=== PATIENT | female | born 1940 | race Caucasian/White ===

== ENCOUNTER → 2017-10-05 10:32 | Outpatient (CLI) | payer MEDICARE, OTHER, SELFPAY ==
--- NOTE | 2017-10-05 10:35 | RAD_ITS ---
STUDY: X-RAY - LUMBOSACRAL SPINE REASON FOR EXAM: Female, 77 years old. Low back pain. TECHNIQUE: 7 view(s) of the lumbosacral spine including lateral flexion and extension views were obtained. COMPARISON: None FINDINGS: Normal lumbar lordosis. There is no substantial scoliosis. There is normal alignment of the vertebrae. There is limited flexion with no abnormal motion. Normal vertebral bodies and endplates. Normal disc space heights. There is diffuse facet sclerosis. Normal bilateral sacral ala, sacroiliac joints, and visualized sacrum. Normal visualized soft tissue structures. RAD/L/S Spine Comp/w Bending Views IMPRESSION: Mild diffuse lumbar spondylosis. Limited flexion with no abnormal motion. Electronically Signed: Eder Gibbons MD at 14:09 EDT , Service support ,
== END ==
PROVIDERS: Family Provider Internal Medicine; PCP Internal Medicine; Visit Provider Orthopaedic Surgery
DX: M54.5 Low back pain (principal)
CPT/HCPCS: 72114

== ENCOUNTER 2017-11-02 12:00 | Outpatient (RCR) | payer MEDICARE, OTHER, SELFPAY ==
--- NOTE | 2017-10-18 09:46 | HP.PTEVAL ---
Patient's Visit Information MILE VAZQUEZ is a 77 year old F referred to Physical Therapy by Kimberly Chaidez DO with a diagnosis of imbalance, lumbar radiculopathy, hamstring weakness and unsteady gait. Date of Evaluation: 10/10/17 Physical Therapist: Albaro De Dios - Visit Plan Frequency: 2x /Week Duration: 4 Weeks Plan: Start with flexion based exercises, neutral spine core strengthening, modalities to reduce L sided low back pain. Add in neurocom assessment and add findings to plan of care. - Subjective Subjective: Pt. is here today for her initial evaluation with diagnosis of imbalance, lumbar radiculopathy, hamstring weakness and unsteady gait. Pt. reports having some back pain, but mostly in L hip. She does report some radiating symptoms down both legs at times, but not often. No mechanism of injury noted. Pt. did see a chiropractor which did help. Pt. denies N/T in either LE. Increases pain: prolonged standing or walking, static standing is worse. Decreases pain: sitting, bending fwrd. Xray-mild spondylosis. Pt. reports being active, but has noticed increased difficulty with walking on uneven surfaces and reports that her legs give out on her at times. Pt. reports no changes in B/B, no saddle region pain or numbness. Pt. has has some relief with heat, but today she reports her pain is not tood bad. Pt. was referred to neurology for EMG study, but neurologist's office reported to her that they do not perform that test. Pt. reports not being convinced that her pain is coming from her back. Pt. denies difficulty with sleeping. Pt. is hopeful to increase balance and reduce L hip pain in order to get back to all recreational activities without issues. - Pain L hip Pain Intensity (Out of 10): 3 Pain Intensity Range: 0, 6 - Objective POSTURE: Pt. has slight increased thoracic kyphosis with FH posture. Pt has equal iliac crest heights in stance. Pt. has normal JOSELYN without LOB. PALPATION: Pt. has slight increased tenderness along bilateral paralspinals of lumbar spine, L PSIS, L piriformis muscle belly. Pt. has no R sided leg pain with palpation. Pt. has no trochanteric symptoms. NEUROLOGICAL: pt. has normal sensation to light and sharp touch throughout bilateral LES. Pt. has 2+ achilles and patellar DTR bilaterally, except 1+ on L achilles. Pt. is able to rise on heels and toes without visble weakness, required balance aide for stability. ROM: LUMBAR SPINE: flexion- nil loss NE, ext mil loss NE, SB nil loss bilat NE, rotation nil loss NE bilat. Pt. has normal hip ROM bilaterally without increase in symptoms. Normal HS length noted. MMT: RLE- ankle- 4+/5 throughout; knee- ext 5/5, flexion 4/5; hip- flexion 4+/5, abd 4/5, ext 4+/5. LLE- ankle 4+/5 throughout; knee- ext 5/5, flexion 4/5; hip- flexion 4+/5, abd 4/5, ext 4+/5. Core strength- poor. Pt. required increased VCing to properly complete MMT. GAIT: Pt. ambulated without AD with decent stability, increased lateral sway bilaterally, increased JOSELYN. Pt. had no LOB with gait this date. Pt. does have methodical pattern with gait. Pt. reports no increase in back pain until ~250ft. when this increased her L hip pain. No radiating symptoms noted. - Special Tests L/S Slump test left side: Negative L/S Slump test right side: Negative L/S Left Straight Leg Raise: Negative L/S Right Straight Leg Raise: Negative Lumbar Standing: Flexion - Mechanical Response: No effect Lumbar Standing: Flexion - Symptoms During Testing: No effect Lumbar Standing: Flexion - Symptoms After Testing: No effect Lumbar Standing: Extension - Mechanical Response: No effect Lumbar Standing: Extension - Symptoms During Testing: No effect Lumbar Standing: Extension - Symptoms After Testing: No effect Lumbar Standing: Right Side Glides - Mechanical Response: No effect Lumbar Standing: Right Side [place] - Symptoms During Testing: No effect Lumbar Standing: Right Side [place] - Symptoms After Testing: No effect Lumbar Standing: Left Side [place] - Mechanical Response: No effect Lumbar Standing: Left Side [place] - Symptoms During Testing: No effect Lumbar Standing: Left Side [place] - Symptoms After Testing: No effect L Hip Scour: Negative L Hip Quadrant - Intraarticular Pathology: Negative L Hip FADDIR - Labrum: Negative L Hip Trevor - IT Band: Negative - Balance Scores Functional Gait Assessment Score: 18 % Disability: 40.0000 - Goals Goal 1:: Pt. to be I with HEP. Goal Time Frame: 2-4 Weeks Goal 2:: Pt. to have neurocom balance assessment and add findings to plan of care. Goal Time Frame: 2 Weeks Goal 3:: Pt. to have increased core and BLE strength increased by 1/2 grade of all effected musculature reducing stress on lumbar spine and reducing risks for future falls. Goal Time Frame: 4-6 Weeks Goal 4:: Pt. to have increased FGA to 23/30 indicating reduced risk for future falls. Goal Time Frame: 4-6 Weeks Goal 5:: Pt. to have decreased L sided low back pain to 0-2/10 with all functional mobility increasing quality of life. Goal Time Frame: 4-6 Weeks - Rehabilitation Potential Physical Therapy Diagnosis: Pt. has signs and symptoms consistent with L sided low back pain. She does have some bilateral HS weakness and imbalance with gait. Her symptoms were not exaccerbated with lumbar mobility and had some increased pain with prolonged standing and walking. Her symptoms were reduced this date compared to seeing ortho. Pt. does have marked imbalance and does report occassional legs giving out. I will treat her with core stability, HS strengthening, postural awareness, conduct a balance assessment on the neurocom and use modalities to reduce back pain in order to get back to prior levels of function and stability. Rehabilitation Potential: Good - Anticipated Interventions Patient/Client Instruction: Educate patient on: Condition, Plan of Care, Benefits of Fitness Program For the Purpose of:: To improve health and function, To foster healthy habits, To improve decision making, To facilitate caregiver knowledge, To improve self management, To prevent re-injury, To improve ability to perform tasks related to life management, To improve tolerance to ADL's Therapeutic Exercise to Include: Strength training, Power training, Endurance training, Balance training, Coordination, Body mechanics, Postural training, Gait and locomotor training, via Neurocom Balance Mas, Passive ROM, Active ROM, Dynamic Lumbar Stabilization For the Purpose of:: To decrease pain, To increase ROM, To improve nutrient delivery to tissue, To increase oxygenation perfusion, To improve muscle performance and motor function, To improve ability to perform ADL's, To improve gait and locomotor functions, To improve health of tissue, To decrease soft tissue restriction, To increase flexibility/ROM, To improve endurance, To improve balance, To improve safety with gait IF ES: Yes Thermo therapy (hot pack): Yes Ultrasound (thermal/non thermal): Yes For the Purpose of:: To decrease pain, To decrease swelling/inflammation, To increase ROM Thank you for the opportunity to evaluate your patient. For Medicare and Medicare HMO plans, please review the plan of care and approve it. It will need to be FAXED BACK to us at [phone] for Medicare purposes. Please let me know if there are questions or concerns regarding this plan of care. Physician Signature: Date:
--- NOTE | 2017-10-19 12:19 | HP.PTCOM_ITS ---
PT Communication Note 10/19/[address] Kimberly Chaidez, DO , Thank you for the referral of Aminata to [facility] for balance assessment. I have enclosed a copy of her results for your review. In summation, she scored rather well. Minor deficits were present in forward excursion on the Limits of Stability Test. Also minor deficitis on the Sensory Organization Test in vestibular score. Most notably, as she stood in place, her left leg pain worsened. I plan to add some balance exercises that deepak ddress these deficits to her current plan of care. Please contact me if you have questions. Sincerely, Butch Oliva DPT, [place] Contact Information
--- NOTE | 2018-03-13 11:15 | HP.PT.NRP ---
HP - Discharge Summary (1) - Patient Information MILE VAZQUEZ was seen in my office for initial evaluation on 10/10/17. The following Plan of Care was established for this patient: Initial Frequency: 2x /Week Initial Duration: 4 Weeks - Anticipated Interventions Patient/Client Instruction: Educate patient on: Condition, Plan of Care, Benefits of Fitness Program For the Purpose of:: To improve health and function, To foster healthy habits, To improve decision making, To facilitate caregiver knowledge, To improve self management, To prevent re-injury, To improve ability to perform tasks related to life management, To improve tolerance to ADL's Therapeutic Exercise to Include: Strength training, Power training, Endurance training, Balance training, Coordination, Body mechanics, Postural training, Gait and locomotor training, via Neurocom Balance Mas, Passive ROM, Active ROM, Dynamic Lumbar Stabilization For the Purpose of:: To decrease pain, To increase ROM, To improve nutrient delivery to tissue, To increase oxygenation perfusion, To improve muscle performance and motor function, To improve ability to perform ADL's, To improve gait and locomotor functions, To improve health of tissue, To decrease soft tissue restriction, To increase flexibility/ROM, To improve endurance, To improve balance, To improve safety with gait IF ES: Yes Thermo therapy (hot pack): Yes Ultrasound (thermal/non thermal): Yes For the Purpose of:: To decrease pain, To decrease swelling/inflammation, To increase ROM This patient was last seen in our office 11/02/17. Pertinent comments regarding their Physical therapy will appear below: Pt. was seen for her balance exam and low back pain. Pt was treated with extension progression and given balance activities to work on at home. Pt. was to trial on own and follow up with PT if needed. Pt. has not been seen for ~4 months and will be DC from PT at this point in time. At this point I will be discontinuing this patient from physical therapy. I would be happy to see this patient again in the future if found appropriate by the physician. Thank you! Albaro De Dios
== END 2017-11-02 19:00 | disposition home or self-care (01) ==
LOC: PT 12:00
PROVIDERS: PCP Student in an Organized Health Care Education/Training Program; Visit Provider Orthopaedic Surgery
DX: M54.16 Radiculopathy, lumbar region (principal); M62.81 Muscle weakness (generalized); R26.81 Unsteadiness on feet
CPT/HCPCS: 97110; 97163; 97750

== ENCOUNTER → 2018-05-10 11:20 | Outpatient (CLI) | payer MEDICARE, OTHER, SELFPAY ==
[2018-05-10 13:20] LABS: Vitamin B12 437 pg/mL (211-911); Vitamin D,25 Hydroxy 40.2 ng/mL (29.95-100.01)
[2018-05-10 13:28] LABS: CPK Total, Creatine Kinase 74 U/L (26-192); Rheumatoid Factor < 10.0 IU/mL (<15)
[2018-05-13 08:57] LABS: ANTINUCLEAR ANTIBODIES DIRECT Negative (Negative)
[2018-05-21 15:03] LABS: ACHR AB Modulating <12 % (0-20); ACHR Recep AB, Blocking 19 % (0-25); Acetylcholine Receptor Binding < 0.03 nmol/L (0.00-0.24)
== END ==
PROVIDERS: Family Provider Student in an Organized Health Care Education/Training Program; PCP Student in an Organized Health Care Education/Training Program; Referring Provider Psychiatry & Neurology Neurology; Visit Provider Psychiatry & Neurology Neurology
DX: R20.0 Anesthesia of skin (principal); R53.1 Weakness; E56.9 Vitamin deficiency, unspecified
CPT/HCPCS: 36415; 82306; 82550; 82607; 83519; 84238; 84443; 86038; 86431

== ENCOUNTER → 2018-05-18 09:18 | Outpatient (CLI) | payer MEDICARE, OTHER, SELFPAY ==
--- NOTE | 2018-05-18 09:27 | MRI_ITS ---
STUDY: MRI LUMBAR SPINE WITHOUT CONTRAST REASON FOR EXAM: Female, 78 years old. Left leg weakness, LEFT SIDE AND HIP PAIN X 1 YEAR. TECHNIQUE: Standardized fat and water weighted pulse sequences were obtained in the sagittal and axial planes. COMPARISON: X-ray dated October 05, 2017 FINDINGS: T12-L1: There is minimal disc space narrowing and endplate spondylosis. There is no significant disc herniation, central canal or foraminal stenosis. Normal lumbar lordosis. There is no substantial scoliosis. Normal conus medullaris that terminates at the L1 L1-2: Normal endplates. Normal disc height, hydration and morphology. Normal bilateral facet joints. Normal central canal and bilateral lateral recesses. Normal bilateral intervertebral neural foramina. L2-3: There is minimal disc space narrowing and endplate spondylosis. There is no significant disc herniation, central canal or foraminal stenosis. L3-4: There is minimal disc space narrowing and endplate spondylosis. There is no significant disc herniation, central canal or foraminal stenosis. L4-5: There is minimal disc space narrowing and endplates spondylosis. There is a mild disc bulge and facet arthropathy without significant central canal or foraminal stenosis. L5-S1: There is minimal disc space narrowing and endplate spondylosis. There is no significant disc herniation, central canal or foraminal stenosis. There is mild facet arthropathy Normal visualized sacral ala. Normal visualized paraspinous soft tissue structures. MRI/Spine Lumbar (Routine) IMPRESSION: Mild degenerative changes. Electronically Signed: Mirza Watson MD at 9:04 EST Tel , Service support ,
--- OUTSIDE RECORDS SUMMARY | 2018-07-03 22:35 | XMS RPT_ITS ---
:1940 Author Organization OHIP Care Team Providers Name Role Phone Kimberly Chaidez Attending Unavailable Dichoso, Major Referring Unavailable Dichoso, Major Primary Care Unavailable Kimberly Chaidez Attending Unavailable Dichoso, Major Primary Care Unavailable Kimberly Chaidez Attending Unavailable Kimberly Chaidez Referring Unavailable DOCTOR, OUT OF TOWN Primary Care Unavailable Kimberly Chaidez Attending Unavailable Don, Simranjot Referring Unavailable DOCTOR, OUT OF TOWN Primary Care Unavailable Beba, Mitesh S. Attending Unavailable Beba, Mitesh S. Referring Unavailable Don, Simranjot Primary Care Unavailable Beba, Mitesh S. Attending Unavailable Beba, Mitesh S. Referring Unavailable Don, Simranjot Primary Care Unavailable DON, SIMRANJOT Attending Unavailable DON, SIMRANJOT Referring Unavailable PROBLEMS PROBLEMS DATE TYPE CONDITION / CODE ATTENDING STATUS SOURCE 06/04/2018 Unknown R20.0 - Beba, Active [facility] skin / Hospital R20.0(ICD-10) Repository 04/03/2018 Active Hyperglycemia, NA Active [facility] unspecified / Other [place] R73.9(ICD-10) Repository 04/03/2018 Active Pain in left hip DON, Active [facility] / M25.552(ICD-10) [facility] Other [place] Repository 04/03/2018 Active Pain in left leg DON, Active [facility] / M79.605(ICD-10) [facility] Repository 03/15/2018 Unknown M54.16 - Chicorelli, Active [place] Radiculopathy, [facility] lumbar region / Hospital M54.16(ICD-10) Repository 10/05/2017 Unknown M54.5 - Low back Chicorelli, Active [place] pain / [facility] M54.5(ICD-10) Hospital Repository PROCEDURES PROCEDURES No Procedure Records FoundRESULTS RESULTS SPINE LUMBAR Observed: 05/18/2018 Status: F Source: [place] (ROUTINE) 9:27 AM [facility] REPOSITORY [facility] Imaging Services [address] [place] [address] Spine Lumbar (Routine) MR#: [id number] Acct: [id number] Name: MILE VAZQUEZ Rep #: [id number] : 1940 F 78 From: Mirza Watson PCP: Papito Ochoa MD Status: REG CLI Study: Spine Lumbar (Routine) Date of Exam: 05/18/18 Exam# [id number] Ordering Dr: Mitesh Yoder MD STUDY: MRI LUMBAR SPINE WITHOUT CONTRAST REASON FOR EXAM: Female, 78 years old. Left leg weakness, LEFT SIDE AND HIP PAIN X 1 YEAR. TECHNIQUE: Standardized fat and water weighted pulse sequences were obtained in the sagittal and axial planes. COMPARISON: X-ray dated October 05, 2017 FINDINGS: T12-L1: There is minimal disc space narrowing and endplate spondylosis. There is no significant disc herniation, central canal or foraminal stenosis. Normal lumbar lordosis. There is no substantial scoliosis. Normal conus medullaris that terminates at the L1 L1-2: Normal endplates. Normal disc height, hydration and morphology. Normal bilateral facet joints. Normal central canal and bilateral lateral recesses. Normal bilateral intervertebral neural foramina. L2-3: There is minimal disc space narrowing and endplate spondylosis. There is no significant disc herniation, central canal or foraminal stenosis. L3-4: There is minimal disc space narrowing and endplate spondylosis. There is no significant disc herniation, central canal or foraminal stenosis. L4-5: There is minimal disc space narrowing and endplates spondylosis. There is a mild disc bulge and facet arthropathy without significant central canal or foraminal stenosis. L5-S1: There is minimal disc space narrowing and endplate spondylosis. There is no significant disc herniation, central canal or foraminal stenosis. There is mild facet arthropathy Normal visualized sacral ala. Normal visualized paraspinous soft tissue structures. MRI/Spine Lumbar (Routine) IMPRESSION: Mild degenerative changes. Electronically Signed: Mirza Watson MD at 9:04 EST Tel , Service support , CC: Enio Yoder MD; Papito Ochoa MD Legal Secretary Receptionist: Signed VITAMIN B12 Collected: 05/10/2018 Status: F Source: [place] 11:28 AM [facility] REPOSITORY TYPE CODE TESTS RESULT OUT OF RANGE REFERENCE UNITS LAB L503.0105 211-911 pg/mL Normal Vitamin B12 437 Performed By: #### L503.0105, L506.1000 #### [facility] [address] [place], [place], [address] VITAMIN D,25 HYDROXY Collected: 05/10/2018 Status: F Source: [place] 11:28 AM [facility] REPOSITORY TYPE CODE TESTS RESULT OUT OF RANGE REFERENCE UNITS LAB L506.1000 29.95-100.01 ng/mL Normal Vitamin D 40.2 25-OH Result Comment: Vitamin D 25(OH) Status Range Deficiency <20 ng/mL (50nmol/L) Insuffciency 20 - 30 ng/mL (50 - 75 nmol/L) Sufficiency 30 - 100 ng/mL (75 - 250 nmol/L) Toxicity >100 ng/mL (>250 nmol/L) Performed By: #### L503.0105, L506.1000 #### [facility] [address] [place], [address] CPK TOTAL, CREATINE Collected: 05/10/2018 Status: F Source: [place] KINASE 11:28 AM [facility] REPOSITORY TYPE CODE TESTS RESULT OUT OF RANGE REFERENCE UNITS LAB L501.3620 26-192 U/L Normal CPK TOTAL 74 Performed By: #### L501.3620, L501.9520, L505.7010 #### [facility] [address] [place], [address] THYROID STIM HORMONE Collected: 05/10/2018 Status: F Source: [place] (TSH) 11:28 AM [facility] REPOSITORY TYPE CODE TESTS RESULT OUT OF RANGE REFERENCE UNITS LAB L501.9520 0.358-3.74 uIU/mL Normal TSH 1.00 Performed By: #### L501.3620, L501.9520, L505.7010 #### [facility] [address] [place], [address] RHEUMATOID FACTOR Collected: 05/10/2018 Status: F Source: [place] 11:28 AM [facility] REPOSITORY TYPE CODE TESTS RESULT OUT OF RANGE REFERENCE UNITS LAB L505.7010 <15 IU/mL Normal RHEUMATOID FAC < 10.0 Performed By: #### L501.3620, L501.9520, L505.7010 #### [facility] [address] [place], [address] ANTINUCLEAR ANTIBODIES Collected: 05/10/2018 Status: F Source: [place] DIRECT 11:28 AM [facility] REPOSITORY TYPE CODE TESTS RESULT OUT OF RANGE REFERENCE UNITS LAB L3100.5475 Negative Normal Negative ALISA-DIRECT Result Comment: Performed at: [address] [id number] Textile Supervisor: Jordi Greer PhD, Phone: [phone] Performed By: #### L3100.5475 #### [facility] (refer to report for specific site) refer to report for address and phone number ACETYLCHOLINE RECEPTOR Collected: 05/10/2018 Status: F Source: [place] 11:28 AM [facility] REPOSITORY Order Comment: Has Patient had Radioactive Injection for X-ray?: N TYPE CODE TESTS RESULT OUT OF RANGE REFERENCE UNITS LAB L3300.0600 0.00-0.24 nmol/L Normal ACTYL < 0.03 [id number] Result Comment: Negative: 0.00 - 0.24 Borderline: 0.25 - 0.40 Positive: > 0.40 Performed By: #### L3300.0600, L3410.0100, L3410.0200 #### [facility] (refer to report for specific site) refer to report for address and phone number [facility] LOCATION MAN AB, Collected: 05/10/2018 Status: F Source: [place] BLOCKING 11:28 AM [facility] REPOSITORY Order Comment: Has Patient had Radioactive Injection for X-ray?: N TYPE CODE TESTS RESULT OUT OF RANGE REFERENCE UNITS LAB L3410.0100 0-25 % Normal [facility] REC 19 [id number] Result Comment: Negative: 0 - 25 Borderline: 26 - 30 Positive: >30 Results for this test are for research purposes only by the assay's piece dyeing machine tender. The performance characteristics of this product have not been established. Results should not be used as a diagnostic procedure without confirmation of the diagnosis by another medically established diagnostic product or procedure. Performed By: #### L3300.0600, L3410.0100, L3410.0200 #### [facility] (refer to report for specific site) refer to report for address and phone number [facility] AB MODULATING Collected: 05/10/2018 Status: F Source: [place] 11:28 AM [facility] REPOSITORY Order Comment: Has Patient had Radioactive Injection for X-ray?: N TYPE CODE TESTS RESULT OUT OF RANGE REFERENCE UNITS LAB L3410.0200 0-20 % Normal [facility] AB <12 [id number] Result Comment: Negative: <21 Equivocal: 21 - 25 Positive: >25 The assay is linear between values of 12 and 64. Those <12 and >64 are reported as such. No single value for ACR-modulating antibody should be used as a sole basis for diagnosis or response to therapy. Performed at: [address] [id number] Textile Supervisor: Nate Smith MD, Phone: [phone] Performed By: #### L3300.0600, L3410.0100, L3410.0200 #### [facility] (refer to report for specific site) refer to report for address and phone number HEMOGLOBIN A1C Collected: 04/03/2018 Status: F Source: [facility] 10:03 AM [facility] REPOSITORY TYPE CODE TESTS RESULT OUT OF REFERENCE UNITS RANGE LAB LA1C2(LOINC 4.5-6.2 % ) Hgb A1c 5.5 LAB ESAV(LOINC) mg/dl Est. Avg. 111 Glucose Performed By: #### LA1C #### [place] [address] PROGRESS Observed: 04/03/2018 Status: COMPLETED Source: [place] 9:01 AM [facility] HNO ID: [id number] Author: Papito Ochoa Service: (none) Author Type: Physician Type: Progress Notes Filed: 05/07/2018 10:30 AM Note Text: Subjective: Mile Vazquez is a 78 year old White female, Patient presents with: Follow Up: back pain - still having pain . HPI Lower back/ Lt hip better - exercises help. Now has pain LLE 9-3pm standing on her feet feels swelling behind the knee. Then radiates down the leg on lateral side to the ankle. Pain is dull or sometimes sharp. Ice/ heat helps. If the leg is tender, then laying on the LLE hutrs but not otherwise. Feels stiffness in the LLE worse than RLE - after walking for few min - the stiffness is better Takes advil in am which helps. No paresthesias Has had NCV/ EMG at [facility] - it was (-). Has appt with neurology 05/10/18, Dr. Alejo. Has seen mining captain - then referred to Ortho - then was seen by PT, chiropractor Refused to do depression screen. She states that she knows she has depression but refused to see psych. Was seeeing dr. hyman for IBS, last Cscope 2014 - needs repeat in 10 yrs PAST MEDICAL HISTORY Diagnosis Date - Abdominal bloating - Anxiety state - Benign neoplasm of other specified sites of skin dermoid cyst of skin - Cough - Depressive disorder - Diarrhea - Foot pain - GERD (gastroesophageal reflux disease) - Hematoma vs. cyst - Hip pain - Hyperlipidemia - IBS (irritable bowel syndrome) - Joint pain - Localized superficial swelling of skin - Localized swelling, mass and lump, left upper limb - Localized swelling, mass and lump, right upper limb - Localized swelling, mass and lump, unspecified upper limb - Osteoarthritis - Otalgia - Posterior rhinorrhea - Radiculopathy of lumbar region - Sciatica - Tinnitus - Vitamin D deficiency PAST SURGICAL HISTORY Procedure Laterality Date - APPENDECTOMY HX 1981 - TOTAL ABDOM HYSTERECTOMY 1981 - VAGINAL DELIVERY HX 2 children Social History Substance Use Topics - Smoking status: Never Smoker - Smokeless tobacco: Never Used - Alcohol use Yes Family history reviewed. ALLERGIES Allergen Reactions - Bactrim [Sulfametho* Rash - Nsaids (Non-Steroid* Rash, Hives Advil specific per PT. Patient states she recently started to take ibuprofen with no issues, unable to delete. 03/29/17 Current Outpatient Prescriptions: hyaluronate sodium (HYALURONIC ACID, SODIUM, ORAL) Take by mouth. ibuprofen (MOTRIN) 200 mg tablet Take 200 mg by mouth every 6 hours as needed. TURMERIC, BULK, MISC ascorbic acid, vitamin C, (VITAMIN C) 500 mg tablet Take 500 mg by mouth once daily. cholecalciferol (VITAMIN D) 1,000 unit tab tablet Take 1,000 Units by mouth once daily. Hmrtlhoqfmg-Dsuhyugyg-Qkt C-Mn cap Take by mouth. ESTRACE 0.01 % (0.1 mg/gram) vaginal cream APPLY 1 GRAM TOPICALLY ONCE A WEEK. Vit P-Oyeabw-Axjgju-Grape (TART ESPINOZA) 50-640-13-75-20 mg cap Take 1 capsule by mouth once daily. No current facility-administered medications for this visit. Review of Systems Constitutional: Negative for chills, fever, malaise/fatigue and weight loss. HENT: Negative for congestion, ear pain and sore throat. Eyes: Negative for blurred vision and double vision. Respiratory: Negative for cough, shortness of breath and wheezing. Cardiovascular: Negative for chest pain and leg swelling. Gastrointestinal: Negative for abdominal pain, blood in stool, heartburn, nausea and vomiting. Genitourinary: Negative for dysuria and hematuria. Neurological: Negative for dizziness and headaches. Psychiatric/Behavioral: Negative for depression and suicidal ideas. has h/o IBS with diarrhea BP 126/72 Pulse 82 Temp 98 Resp 16 Ht 5' 1 (1.55m) Wt 132 lb 12.8 oz (60.2kg) SpO2 96% BMI 25.11 kg/(m2). Physical Exam Constitutional: She is oriented to person, place, and time and well-developed, well-nourished, and in no distress. No distress. HENT: Head: Normocephalic. Eyes: Conjunctivae are normal. Right eye exhibits no discharge. Left eye exhibits no discharge. Cardiovascular: Normal rate, regular rhythm, normal heart sounds and intact distal pulses. No murmur heard. Pulmonary/Chest: Effort normal and breath sounds normal. No respiratory distress. She has no wheezes. Abdominal: Soft. Bowel sounds are normal. She exhibits no distension. There is no tenderness. Musculoskeletal: Edema: no LE edema. Neurological: She is alert and oriented to person, place, and time. Skin: Skin is warm and dry. Psychiatric: Mood and affect normal. Lt hip - pain with adduction, no focal tenderness Lt Pain knee - no tenderness to plapation, some pain with flexion beyond 90. ASSESSMENT/PLAN: 1. Pain of left hip joint - ICD9: 719.45, ICD10: M25.552 (primary diagnosis) 2. Left leg pain - ICD9: 729.5, ICD10: M79.605 Encouraged pt to keep up with ongoing f/u woith ortho/ neuro. Discussed above plan with patient. Pt agreeable with above plan. Papito Ochoa MD This note was partially generated using YUPIQ voice recognition system, and there may be some incorrect words, spellings, and punctuation that were not noted in checking the note before saving. GAVI Observed: 04/03/2018 Status: COMPLETED Source: [place] 9:00 AM [facility] REPOSITORY Office Visit (AGINTMLW) MILE VAZQUEZ ([id number]) 1940 F Date Time Provider Department 04/03/18 9:00 AM PAPITO OCHOA During your visit today, we recorded the following information about you: Temperature Pulse Respiration Blood pressure 98 degrees 82/minute 16/minute 126/72 Weight Height 60.2 kg 1.549 m Papito Ochoa MD 05/07/2018 10:30 AM Signed Subjective: Mile Vazquez is a 78 year old White female, Patient presents with: Follow Up: back pain - still having pain . HPI Lower back/ Lt hip better - exercises help. Now has pain LLE 9-3pm standing on her feet feels swelling behind the knee. Then radiates down the leg on lateral side to the ankle. Pain is dull or sometimes sharp. Ice/ heat helps. If the leg is tender, then laying on the LLE hutrs but not otherwise. Feels stiffness in the LLE worse than RLE - after walking for few min - the stiffness is better Takes advil in am which helps. No paresthesias Has had NCV/ EMG [facility] - it was (-). Has appt with neurology 05/10/18, Dr. Alejo. Has seen mining captain - then referred to Ortho - then was seen by PT, chiropractor Refused to do depression screen. She states that she knows she has depression but refused to see psych. Was seeeing dr. hyman for IBS, last Cscope 2014 - needs repeat in 10 yrs PAST MEDICAL HISTORY Diagnosis Date - Abdominal bloating - Anxiety state - Benign neoplasm of other specified sites of skin dermoid cyst of skin - Cough - Depressive disorder - Diarrhea - Foot pain - GERD (gastroesophageal reflux disease) - Hematoma vs. cyst - Hip pain - Hyperlipidemia - IBS (irritable bowel syndrome) - Joint pain - Localized superficial swelling of skin - Localized swelling, mass and lump, left upper limb - Localized swelling, mass and lump, right upper limb - Localized swelling, mass and lump, unspecified upper limb - Osteoarthritis - Otalgia - Posterior rhinorrhea - Radiculopathy of lumbar region - Sciatica - Tinnitus - Vitamin D deficiency PAST SURGICAL HISTORY Procedure Laterality Date - APPENDECTOMY HX 1981 - TOTAL ABDOM HYSTERECTOMY 1981 - VAGINAL DELIVERY HX 2 children Social History Substance Use Topics - Smoking status: Never Smoker - Smokeless tobacco: Never Used - Alcohol use Yes Family history reviewed. ALLERGIES Allergen Reactions - Bactrim [Sulfametho* Rash - Nsaids (Non-Steroid* Rash, Hives Advil specific per PT. Patient states she recently started to take ibuprofen with no issues, unable to delete. 03/29/17 Current Outpatient Prescriptions: hyaluronate sodium (HYALURONIC ACID, SODIUM, ORAL) Take by mouth. ibuprofen (MOTRIN) 200 mg tablet Take 200 mg by mouth every 6 hours as needed. TURMERIC, BULK, MISC ascorbic acid, vitamin C, (VITAMIN C) 500 mg tablet Take 500 mg by mouth once daily. cholecalciferol (VITAMIN D) 1,000 unit tab tablet Take 1,000 Units by mouth once daily. Nckphzzoyba-Ikkymvozo-Lrc C-Mn cap Take by mouth. ESTRACE 0.01 % (0.1 mg/gram) vaginal cream APPLY 1 GRAM TOPICALLY ONCE A WEEK. Vit F-Wsmogu-Bpuxbc-Grape (TART ESPINOZA) 29-337-95-75-20 mg cap Take 1 capsule by mouth once daily. No current facility-administered medications for this visit. Review of Systems Constitutional: Negative for chills, fever, malaise/fatigue and weight loss. HENT: Negative for congestion, ear pain and sore throat. Eyes: Negative for blurred vision and double vision. Respiratory: Negative for cough, shortness of breath and wheezing. Cardiovascular: Negative for chest pain and leg swelling. Gastrointestinal: Negative for abdominal pain, blood in stool, heartburn, nausea and vomiting. Genitourinary: Negative for dysuria and hematuria. Neurological: Negative for dizziness and headaches. Psychiatric/Behavioral: Negative for depression and suicidal ideas. has h/o IBS with diarrhea BP 126/72 Pulse 82 Temp 98 Resp 16 Ht 5' 1 (1.55m) Wt 132 lb 12.8 oz (60.2kg) SpO2 96% BMI 25.11 kg/(m2). Physical Exam Constitutional: She is oriented to person, place, and time and well-developed, well-nourished, and in no distress. No distress. HENT: Head: Normocephalic. Eyes: Conjunctivae are normal. Right eye exhibits no discharge. Left eye exhibits no discharge. Cardiovascular: Normal rate, regular rhythm, normal heart sounds and intact distal pulses. No murmur heard. Pulmonary/Chest: Effort normal and breath sounds normal. No respiratory distress. She has no wheezes. Abdominal: Soft. Bowel sounds are normal. She exhibits no distension. There is no tenderness. Musculoskeletal: Edema: no LE edema. Neurological: She is alert and oriented to person, place, and time. Skin: Skin is warm and dry. Psychiatric: Mood and affect normal. Lt hip - pain with adduction, no focal tenderness Lt Pain knee - no tenderness to plapation, some pain with flexion beyond 90. ASSESSMENT/PLAN: 1. Pain of left hip joint - ICD9: 719.45, ICD10: M25.552 (primary diagnosis) 2. Left leg pain - ICD9: 729.5, ICD10: M79.605 Encouraged pt to keep up with ongoing f/u woith ortho/ neuro. Discussed above plan with patient. Pt agreeable with above plan. Papito Ochoa MD This note was partially generated using YUPI[employer] voice recognition system, and there may be some incorrect words, spellings, and punctuation that were not noted in checking the note before saving. Referring Provider: SELF [200] Allergies As of Date: 04/03/2018 Noted Allergy Reaction BACTRIM (SULFAMETHOXAZOLE-TRIMETH*01/20/2016 2 - Rash NSAIDS (NON-STEROIDAL ANTI-INFLAM*01/20/2016 2 - Rash 4 - Hives Comments: Advil specific per PT. Patient states she recently started to take ibuprofen with no issues, unable to delete. 03/29/17 Date Reviewed: 04/03/2018 Reviewed by: Zeenat Valdez - Fully Assessed Reason for Visit: Follow Up [171] Cmt: back pain - still having pain Primary Visit Diagnosis:Pain of left hip joint [M25.552] Other Visit Diagnosis:Left leg pain [M79.605] Prescriptions as of 04/03/2018 Sig: HYALURONIC ACID (SODIUM) ORAL Take by mouth. IBUPROFEN 200 MG TABLET Take 200 mg by mouth every 6 * TURMERIC (BULK) MISC ASCORBIC ACID (VITAMIN C) 500* Take 500 mg by mouth once marcus* CHOLECALCIFEROL (VITAMIN D3) * Take 1,000 Units by mouth onc* FQXELYSPMGT-CANREXYJZ-LBF C-M* Take by mouth. ESTRACE 0.01% (0.1 MG/GRAM) V* APPLY 1 GRAM TOPICALLY ONCE A* VIT C 30 MG-S.ESPINOZA 250 MG-C* Take 1 capsule by mouth once * Problem List As Of Date 04/03/2018 Noted Resolved Dizziness [R42] INVALID FOR* Notes for Staff Discussed this visit Follow Up: Discussed this visit Disposition: Return in about 3 months (around 07/04/2018), or if symptoms worsen or fail to improve, for hip/ leg pain. Follow-up and Disposition History Recorded Encounter Status:Closed by MD PAPITO OCHOA on 05/07/18 ORTHOPEDIC VISIT Observed: 02/22/2018 Status: F Source: [place] REPORT 9:39 AM [facility] [address] [place] [id number] OFFICE VISIT Date of Service: 01/25/18 MR#: [id number] Acct: [id number] Name: MILE VAZQUEZ Rep #: [id number] : 1940 Provider: Kimberly Chaidez DO Age/Sex: 77/F Location: [facility] [place] Status: Signed Intake Intake Visit Reasons: LEFT LEG Is patient in pain?: Yes Allergies Sulfa (Sulfonamide Antibiotics) Allergy (Verified 01/25/18 15:18) Unknown Medications calcium phosphate-vitamin D3 250 mg calcium-500 unit chewable tablet tab PO 10/05/17 [History Confirmed 10/05/17] cholecalciferol (vitamin D3) 1,000 unit capsule 1,000 unit PO QDAY 10/05/17 [History Confirmed 10/05/17] glucosamine sulfate 500 mg tablet 500 mg PO BID 10/05/17 [History Confirmed 10/05/17] ibuprofen 100 mg tablet 200 mg PO TID-QID PRN 10/05/17 [History Confirmed 10/05/17] PFSH Surgical History H/O: hysterectomy (Acute) Family History Mother Hypertension Heart disease Cancer Father Cancer Social History Smoking Status: Never smoker alcohol intake: current HPI LEFT LEG: Details: MILE VAZQUEZ is a 77 year old F here today for a followup after her left leg EMG. She states that she continues to have achiness and has limited range of motion. Patient has difficulty getting in/out of bathtub. Patient notes that she is better. She has exercises which she has been doing. Patient notes that her foot goes numb after doing exercises. Her EMG is here for review. She takes IBU for pain. She states she tried to see Dr Matthews but his staff said her problems could not be treated by him. She is doing calf stretches that are helpful for her ankles. ROS Const Reports system reviewed and no additional complaints, except as docu Eyes Reports system reviewed and no additional complaints, except as docu ENT Reports system reviewed and no additional complaints, except as docu Card Reports system reviewed and no additional complaints, except as docu Resp Reports system reviewed and no additional complaints, except as docu GI Reports system reviewed and no additional complaints, except as docu Reports system reviewed and no additional complaints, except as docu Musc Reports joint pain, Reports body aches, Reports muscle weakness Skin/Breast Reports system reviewed and no additional complaints, except as docu Neuro Yes system reviewed and no additional complaints, except as docu Psych Reports system reviewed and no additional complaints, except as docu Endo Reports system reviewed and no additional complaints, except as docu Assessment AND Plan 1. Weakness of left lower extremity R29.898 Plan discussed at length that this is an issue that neurology sees as she is getting atrophy of muscles without discernible cause. not ortho as nothing to be fixed. i guess can be seen by pain mgmt but without reason for atrophy not sure where/how injections would help her. Explained that her test were negative, she is strengthening but continues to have atrophy. Continue chiro care as long as it continues to be helpful. Follow up with Dr Matthews or sooner if pain, swelling, numbness or associated symptoms, or concerns develop. All questions answered. Patient in agreement of plan. 2. Lumbar radiculopathy M54.16 Coding Diagnoses Weakness of left lower extremity R29.898 Laterality: left Lumbar radiculopathy M54.16 02/22/18 0939 <Electronically signed by Kimberly Chaidez DO> Date Kimberly Chaidez DO Cosigner Signature: Date (if applicable) CC: PT COMMUNICATION Observed: 10/23/2017 Status: F Source: [place] 6:50 AM [facility] REPOSITORY [facility] [address] [place] [address] Fax REHABILITATION SERVICES PROGRESS NOTE MR#: [id number] Acct: [id number] Name: MILE VAZQUEZ Rep #: [id number] : 1940 77 From: Butch Oliva DPT, OCS, CSCS Referring Dr.: Kimberly Chaidez DO Status: REG RCR Insurance: MEDICARE PART A B [facility] PL[employer] OF [facility] PT Communication Note 10/19/[address] Kimberly Chaidez, DO , Thank you for the referral of Mile to [facility] for balance assessment. I have enclosed a copy of her results for your review. In summation, she scored rather well. Minor deficits were present in forward excursion on the Limits of Stability Test. Also minor deficitis on the Sensory Organization Test in vestibular score. Most notably, as she stood in place, her left leg pain worsened. I plan to add some balance exercises that deepak ddress these deficits to her current plan of care. Please contact me if you have questions. Sincerely, Butch Oliva DPT, OC Contact Information 10/23/17 0650 <Electronically signed by Butch Oliva DPT, PRATIK, CSCS> Date PRATIK Marie DPT, CSCS Cosigner Signature (if applicable): Date CC: Kimberly hCaidez DO; Papito Ochoa MD Signed For Medicare only, by signing this I certify the plan of care. Physicians Signature Date INITAL EVALUATION (1) Observed: 10/18/2017 Status: F Source: [place] - PT 9:46 AM [facility] REPOSITORY [facility] Physical [facility] [address] [place] [address] Fax REHABILITATION SERVICES INITIAL EVALUATION MR#: [id number] Acct: [id number] Name: MILE VAZQUEZ Rep #: [id number] : 1940 77 From: Albaro De Dios DPT Referring Dr.: Kimberly Chaidez DO Status: REG RCR Insurance: MEDICARE PART A B [facility] OF [facility] Patient's Visit Information MILE VAZQUEZ is a 77 year old F referred to Physical Therapy by Kimberly Chaidez DO with a diagnosis of imbalance, lumbar radiculopathy, hamstring weakness and unsteady gait. Date of Evaluation: 10/10/17 Physical Therapist: Albaro De Dios - Visit Plan Frequency: 2x /Week Duration: 4 Weeks Plan: Start with flexion based exercises, neutral spine core strengthening, modalities to reduce L sided low back pain. Add in neurocom assessment and add findings to plan of care. - Subjective Subjective: Pt. is here today for her initial evaluation with diagnosis of imbalance, lumbar radiculopathy, hamstring weakness and unsteady gait. Pt. reports having some back pain, but mostly in L hip. She does report some radiating symptoms down both legs at times, but not often. No mechanism of injury noted. Pt. did see a chiropractor which did help. Pt. denies N/T in either LE. Increases pain: prolonged standing or walking, static standing is worse. Decreases pain: sitting, bending fwrd. Xray-mild spondylosis. Pt. reports being active, but has noticed increased difficulty with walking on uneven surfaces and reports that her legs give out on her at times. Pt. reports no changes in B/B, no saddle region pain or numbness. Pt. has has some relief with heat, but today she reports her pain is not tood bad. Pt. was referred to neurology for EMG study, but neurologist's office reported to her that they do not perform that test. Pt. reports not being convinced that her pain is coming from her back. Pt. denies difficulty with sleeping. Pt. is hopeful to increase balance and reduce L hip pain in order to get back to all recreational activities without issues. - Pain L hip Pain Intensity (Out of 10): 3 Pain Intensity Range: 0, 6 - Objective POSTURE: Pt. has slight increased thoracic kyphosis with FH posture. Pt has equal iliac crest heights in stance. Pt. has normal JOSELYN without LOB. PALPATION: Pt. has slight increased tenderness along bilateral paralspinals of lumbar spine, L PSIS, L piriformis muscle belly. Pt. has no R sided leg pain with palpation. Pt. has no trochanteric symptoms. NEUROLOGICAL: pt. has normal sensation to light and sharp touch throughout bilateral LES. Pt. has 2+ achilles and patellar DTR bilaterally, except 1+ on L achilles. Pt. is able to rise on heels and toes without visble weakness, required balance aide for stability. ROM: LUMBAR SPINE: flexion- nil loss NE, ext mil loss NE, SB nil loss bilat NE, rotation nil loss NE bilat. Pt. has normal hip ROM bilaterally without increase in symptoms. Normal HS length noted. MMT: RLE- ankle- 4+/5 throughout; knee- ext 5/5, flexion 4/5; hip- flexion 4+/5, abd 4/5, ext 4+/5. LLE- ankle 4+/5 throughout; knee- ext 5/5, flexion 4/5; hip- flexion 4+/5, abd 4/5, ext 4+/5. Core strength- poor. Pt. required increased VCing to properly complete MMT. GAIT: Pt. ambulated without AD with decent stability, increased lateral sway bilaterally, increased JOSELYN. Pt. had no LOB with gait this date. Pt. does have methodical pattern with gait. Pt. reports no increase in back pain until 250ft. when this increased her L hip pain. No radiating symptoms noted. - Special Tests L/S Slump test left side: Negative L/S Slump test right side: Negative L/S Left Straight Leg Raise: Negative L/S Right Straight Leg Raise: Negative Lumbar Standing: Flexion - Mechanical Response: No effect Lumbar Standing: Flexion - Symptoms During Testing: No effect Lumbar Standing: Flexion - Symptoms After Testing: No effect Lumbar Standing: Extension - Mechanical Response: No effect Lumbar Standing: Extension - Symptoms During Testing: No effect Lumbar Standing: Extension - Symptoms After Testing: No effect Lumbar Standing: Right Side Glides - Mechanical Response: No effect Lumbar Standing: Right Side [place] - Symptoms During Testing: No effect Lumbar Standing: Right Side [place] - Symptoms After Testing: No effect Lumbar Standing: Left Side [place] - Mechanical Response: No effect Lumbar Standing: Left Side [place] - Symptoms During Testing: No effect Lumbar Standing: Left Side [place] - Symptoms After Testing: No effect L Hip Scour: Negative L Hip Quadrant - Intraarticular Pathology: Negative L Hip FADDIR - Labrum: Negative L Hip Trevor - IT Band: Negative - Balance Scores Functional Gait Assessment Score: 18 % Disability: 40.0000 - Goals Goal 1:: Pt. to be I with HEP. Goal Time Frame: 2-4 Weeks Goal 2:: Pt. to have neurocom balance assessment and add findings to plan of care. Goal Time Frame: 2 Weeks Goal 3:: Pt. to have increased core and BLE strength increased by 1/2 grade of all effected musculature reducing stress on lumbar spine and reducing risks for future falls. Goal Time Frame: 4-6 Weeks Goal 4:: Pt. to have increased FGA to 23/30 indicating reduced risk for future falls. Goal Time Frame: 4-6 Weeks Goal 5:: Pt. to have decreased L sided low back pain to 0- 2/10 with all functional mobility increasing quality of life. Goal Time Frame: 4-6 Weeks - Rehabilitation Potential Physical Therapy Diagnosis: Pt. has signs and symptoms consistent with L sided low back pain. She does have some bilateral HS weakness and imbalance with gait. Her symptoms were not exaccerbated with lumbar mobility and had some increased pain with prolonged standing and walking. Her symptoms were reduced this date compared to seeing ortho. Pt. does have marked imbalance and does report occassional legs giving out. I will treat her with core stability, HS strengthening, postural awareness, conduct a balance assessment on the neurocom and use modalities to reduce back pain in order to get back to prior levels of function and stability. Rehabilitation Potential: Good - Anticipated Interventions Patient/Client Instruction: Educate patient on: Condition, Plan of Care, Benefits of Fitness Program For the Purpose of:: To improve health and function, To foster healthy habits, To improve decision making, To facilitate caregiver knowledge, To improve self management, To prevent re-injury, To improve ability to perform tasks related to life management, To improve tolerance to ADL's Therapeutic Exercise to Include: Strength training, Power training, Endurance training, Balance training, Coordination, Body mechanics, Postural training, Gait and locomotor training, via Neurocom Balance Mas, Passive ROM, Active ROM, Dynamic Lumbar Stabilization For the Purpose of:: To decrease pain, To increase ROM, To improve nutrient delivery to tissue, To increase oxygenation perfusion, To improve muscle performance and motor function, To improve ability to perform ADL's, To improve gait and locomotor functions, To improve health of tissue, To decrease soft tissue restriction, To increase flexibility/ROM, To improve endurance, To improve balance, To improve safety with gait IF ES: Yes Thermo therapy (hot pack): Yes Ultrasound (thermal/non thermal): Yes For the Purpose of:: To decrease pain, To decrease swelling/inflammation, To increase ROM Thank you for the opportunity to evaluate your patient. For Medicare and Medicare HMO plans, please review the plan of care and approve it. It will need to be FAXED BACK to us at [phone] for Medicare purposes. Please let me know if there are questions or concerns regarding this plan of care. Physician Signature: Date: <Electronically signed by Albaro De Dios DPT> 10/18/17 0946 CC: Kimberly Chaidez DO; Papito Ochoa MD CLS Signed For Medicare only, by signing this I certify the plan of care. Physicians Signature Date ORTHOPEDIC VISIT Observed: 10/05/2017 Status: F Source: [place] REPORT 4:07 PM [facility] [address] [place] [address] OFFICE VISIT Date of Service: 10/05/17 MR#: [id number] Acct: [id number] Name: MILE VAZQUEZ Rep #: [id number] : 1940 Provider: Kimberly Chaidez DO Age/Sex: 77/F Location: [facility].S[facility] Status: Signed Intake Vital Signs10/05/17 Height 5 ft 1 in 10/05/17 Weight: 133 lb 10/05/17 Body Mass Index (BMI) 25.1 Intake Visit Reasons: LEFT HIP Is patient in pain?: Yes Pain scale (1-10): 5 Allergies Sulfa (Sulfonamide Antibiotics) Allergy (Verified 10/05/17 10:16) Unknown Medications calcium phosphate-vitamin D3 250 mg calcium-500 unit chewable tablet tab PO 10/05/17 [History Confirmed 10/05/17] cholecalciferol (vitamin D3) 1,000 unit capsule 1,000 unit PO QDAY 10/05/17 [History Confirmed 10/05/17] glucosamine sulfate 500 mg tablet 500 mg PO BID 10/05/17 [History Confirmed 10/05/17] ibuprofen 100 mg tablet 200 mg PO TID-QID PRN 10/05/17 [History Confirmed 10/05/17] PFSH Surgical History H/O: hysterectomy (Acute) Family History Mother Hypertension Heart disease Cancer Father Cancer Social History Smoking Status: Never smoker alcohol intake: current HPI LEFT HIP: Details: MILE VAZQUEZ is a 77 year old F here today referred by Dr Panda for leg pain. She notes that her pain increased in May with no known injury. She notes that the pain radiates down her bilateral legs, left greater than right. The pain radiates over her lateral thigh into her foot. She describes her pain starts as a dull ache and progresses to a sharp pain. Her pain increases with standing for long periods of time. She also has difficulty sleeping at night. Patient notes that she saw her PCP who thought her pain was coming from her back. She saw a chiropractor on Monday for adjustments and modalities which was helpful. She is taking ibuprofen for pain. She denies any xrays. She has numbness into her feet when she does her foot exercises. She denies any formal PT or MRI for her back. She has increased pain with icing but heat is helpful. She has also tried a topical ointment which is helpful. Patient notes that she had a low vitamin D level and recently started taking suppliments. ROS Const Reports system reviewed and no additional complaints, except as docu Eyes Reports system reviewed and no additional complaints, except as docu ENT Reports system reviewed and no additional complaints, except as docu Card Reports system reviewed and no additional complaints, except as docu Resp Reports system reviewed and no additional complaints, except as docu GI Reports system reviewed and no additional complaints, except as docu Reports system reviewed and no additional complaints, except as docu Skin/Breast Reports system reviewed and no additional complaints, except as docu Neuro Yes system reviewed and no additional complaints, except as docu Psych Reports system reviewed and no additional complaints, except as docu Endo Reports system reviewed and no additional complaints, except as docu Ortho Exam Spine Neuro: No Straight Leg Raise or Light Touch Sensation General: alert, awake, oriented x3 Skin: Yes CDI Cognition: normal cognition Speech: speech normal Gait: normal gait Sensory Exam: no sensory deficits noted SPINE TESTING CERVICAL THORACIC LUMBAR SLR: Negative Musculoskeletal General: Yes normal posture Thoracic/Lumbar Spine: thoracic and lumbar spine normal to inspection, thoraco-lumbar ROM normal Strength 0=absent - 5=normal R Quadriceps (L2-4): 5, L Quadriceps (L2-4): 5, R Anterior Tibialis (L4-5): 5, L Anterior Tibialis (L4-5): 5, R EHL (L5): 5, L EHL (L5): 5, R Hamstrings (L5-S1): 3, L Hamstrings (L5-S1): 3, GS (S1): 5, L GS (S1): 5, R Peroneals (S1): 5, L Peroneals (S1): 5 Details: decreased reflex at achilles on left side Assessment AND Plan 1. Balance problem R26.89 Plan patient has extremely weak hamstrings and is concerned about her weakness and balance worsening. she is concerned about als, but not hyperreflexive on exam. will send to neuro for eval for balance and weakness. will also schedule an emg. sent for balance assessment by [facility]. will follow up with us after neuro visit. call with concerns, or if other concerns arise. Personally reviewed the patient's medical history, medications, surgeries and recent exams if available. X-rays were reviewed. There is no obvious fracture, dislocation, or lucency noted. Educated the patient on the anatomy of the back and hip and etiology of her pain. Patient is very flexible, ttp the psis bilateral, unsteady balance and neg hoffmans. Explained that we will order an EMG/NC and have her complete a balance assessment and refer her to Neurologist for eval as well. Follow up in or sooner if pain, swelling, numbness or associated symptoms, or concerns develop. All questions answered. Patient in agreement of plan. 2. Lumbar radiculopathy M54.16 Orders Orders: Plan Detail Other Orders Orders: Coding Level of Care Code Off vis,new,level 3 Diagnoses Balance problem R26.89 Lumbar radiculopathy M54.16 10/05/17 1607 <Electronically signed by Kimberly Chaidez DO> Date Kimberly Chaidez DO Cosigner Signature: Date (if applicable) CC: L/S SPINE COMP/W Observed: 10/05/2017 Status: F Source: [place] BENDING VIEWS 10:35 AM [facility] REPOSITORY [facility] Imaging Services [address] [place] [id number] L/S Spine Comp/w Bending Views MR#: [id number] Acct: [id number] Name: MILE VAZQUEZ Rep #: [id number] : 1940 F 77 From: Eder Gibbons MD PCP: Major Skinner Status: REG CLI Study: L/S Spine Comp/w Bending Views Date of Exam: 10/05/17 Exam# [id number] Ordering Dr: Kimberly Chaidez DO STUDY: X-RAY - LUMBOSACRAL SPINE REASON FOR EXAM: Female, 77 years old. Low back pain. TECHNIQUE: 7 view(s) of the lumbosacral spine including lateral flexion and extension views were obtained. COMPARISON: None FINDINGS: Normal lumbar lordosis. There is no substantial scoliosis. There is normal alignment of the vertebrae. There is limited flexion with no abnormal motion. Normal vertebral bodies and endplates. Normal disc space heights. There is diffuse facet sclerosis. Normal bilateral sacral ala, sacroiliac joints, and visualized sacrum. Normal visualized soft tissue structures. RAD/L/S Spine Comp/w Bending Views IMPRESSION: Mild diffuse lumbar spondylosis. Limited flexion with no abnormal motion. Electronically Signed: Eder Gibbons MD at 14:09 EDT , Service support , CC: Kimberly Skinner Legal Secretary Receptionist: Signed MAMMOGRAM SCREENING Observed: 10/04/2017 Status: F Source: [facility] WITH CAD IF PERFORMED 2:00 PM HEALTH SYSTEM REPOSITORY Performed at [facility] APPROVED BY: Homero Hsieh MD #[id number] - MAMMOGRAM SCREENING WITH CAD IF PERFORMED BILATERAL DIGITAL SCREENING MAMMOGRAM WITH CAD WITH MEDIOLATERAL OBLIQUE CRANIOCAUDAL: 10/04/2017 CLINICAL: Routine screening mammogram. Patient reports no breast problems. Comparison is made to exams dated: 04/26/2016 mammogram, 04/22/2015 mammogram, 04/22/2014 mammogram, 02/20/2012 mammogram, and 02/15/2011 mammogram - Formerly [facility], 1928–1983. There are scattered fibroglandular elements in both breasts. Current study was also evaluated with a Computer Aided Detection (CAD) system. No significant masses, calcifications, or other findings are seen in either breast. There has been no significant interval change. IMPRESSION: NEGATIVE There is no mammographic evidence of malignancy. A 1 year screening mammogram is recommended. Based on a modified Alyce Model, this patient's calculated lifetime risk of developing breast cancer is 2.8%. The patient was notified of the results. Homero gill/tomas:10/04/2017 15:31:35 Cover Making Machine Operator: Holli Bravo)([place]), [facility], [facility]1983 letter sent: Normal Birad 1 or 2 Mammogram BI-RADS: 1 Negative TOTAL 25-OH VITAMIN Collected: 09/28/2017 Status: F Source: [facility] 9:57 AM HEALTH SYSTEM REPOSITORY TYPE CODE TESTS RESULT OUT OF REFERENCE UNITS RANGE LAB 25VD1(LOINC 30.0-100.0 ng/mL ) Total 25-OH 31.7 Vitamin D Performed By: #### 25VD1 #### [place] [address] HEMOGRAM Collected: 09/28/2017 Status: F Source: [facility] 9:56 AM HEALTH SYSTEM REPOSITORY TYPE CODE TESTS RESULT OUT OF REFERENCE UNITS RANGE LAB LWBC(LOINC) 4.8-10.8 thou/cmm WBC 6.2 LAB LRBC(LOINC) 4.20-5.40 mil/cmm RBC 4.23 LAB LHGB(LOINC) 12.0-16.0 g/dL Hgb 13.6 LAB LHCT(LOINC) 37.0-47.0 % Hct 40.8 LAB LMCV(LOINC) 81.0-99.0 fl MCV 96.5 LAB LMCH(LOINC) 27.0-31.0 pg High MCH 32.2 LAB LMCHC(LOINC 32.0-36.0 % ) MCHC 33.3 LAB LRDW(LOINC) 11.5-15.9 % RDW 13.4 LAB LPLT(LOINC) 150-400 thou/cmm Platelet 237 LAB LMPV(LOINC) 7.1-10.5 fl High MPV 10.9 Performed By: #### LCBC #### [place] [address] BASIC PANEL Collected: 09/28/2017 Status: F Source: [facility] 9:56 AM HEALTH SYSTEM REPOSITORY TYPE CODE TESTS RESULT OUT OF REFERENCE UNITS RANGE LAB [employer]IATE(LOINC) 136-145 mEq/L Sodium Blood 140 LAB LK(LOINC) 3.5-5.1 mEq/L Potassium Blood 4.0 LAB LCL(LOINC) 98-107 mEq/L Chloride Blood 106 LAB LCO2(LOINC 21-32 mEq/L ) CO2 Blood 27 LAB LGLU(LOINC 70-99 mg/dL ) Glucose High Blood 111 LAB LBUN(LOINC 7-25 mg/dL ) BUN Blood 16 LAB LCREA(LOIN 0.51-0.95 mg/dL C) Creatinine Blood 0.63 LAB LCA(LOINC) 8.5-10.1 mg/dL Calcium Blood 9.6 LAB LANGP(LOIN 8-20 C) Anion Gap 11 LAB LBNCR(LOIN 10-20 C) High BUN/Creatinine 25 Ratio Performed By: #### LP8 #### [place] [address] MDRD EGFR Collected: 09/28/2017 Status: F Source: [facility] 9:56 AM HEALTH SYSTEM REPOSITORY TYPE CODE TESTS RESULT OUT OF RANGE REFERENCE UNITS LAB LGFRF(LOINC >60mL/min/1.73m ) 2 eGFR >60 Result Comment: If the patient is , multiply the result by 1.210. Performed By: #### LGFR #### [place] [address] CNOV Observed: 09/28/2017 Status: COMPLETED Source: [place] 9:00 AM [facility] REPOSITORY Office Visit (AGINTMLW) MILE VAZQUEZ ([id number]) 1940 F Date Time Provider Department 09/28/17 9:00 AM PAPITO OCHOA INTMLW During your visit today, we recorded the following information about you: Temperature Pulse Blood pressure Weight 97.8 degrees 62/minute 130/72 60.4 kg Height 1.549 m September Rodney 09/28/2017 8:49 AM Signed Pt here for follow up on dizziness and joint pain. Pt state no more dizziness and her left hip has been aching in pain since May and radiates down her leg, the pain occurs when she is walking or standing. Thuy Soriano /ALLI Ochoa MD 10/23/2017 11:50 AM Signed Subjective: Mile Vazquez is a 77 year old White female, Patient presents with: Follow Up . HPI Lt lower back/ hip/ leg pain X 4 months Been seeing chiropractor , now seeing Ortho 10/05/17. 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 Has been seeing Dr. Hyman for diarrhea - had a colonoscopy, diarrhea thought to be d/t IBS. Doesn't take bentyl. Has been modifying her diet which has helped her control the diarrhea. Weight steady. Dizziness resolved. No CP/SOB Has DEXA done 10+ years ago , was osteopenia but pt doesn't want to take any medications for it. Was taking Vit D/Ca supplement but stopped taking it as she thought that was probably making her leg pain worse. Is willing to restart it again. C'Scopy done 3 yrs ago. 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 cyst - Hip pain - Hyperlipidemia - IBS (irritable bowel syndrome) - Joint pain - Localized superficial swelling of skin - Localized swelling, mass and lump, left upper limb - Localized swelling, mass and lump, right upper limb - Localized swelling, mass and lump, unspecified upper limb - Osteoarthritis - Otalgia - Posterior rhinorrhea - Radiculopathy of lumbar region - Sciatica - Tinnitus - Vitamin D deficiency PAST SURGICAL HISTORY Procedure Laterality Date - APPENDECTOMY HX 1981 - TOTAL ABDOM HYSTERECTOMY 1981 - VAGINAL DELIVERY HX 2 children Social History Substance Use Topics - Smoking status: Never Smoker - Smokeless tobacco: Never Used - Alcohol use Yes Family history reviewed. ALLERGIES Allergen Reactions - Bactrim [Sulfametho* Rash - Nsaids (Non-Steroid* Rash, Hives Advil specific per PT. Patient states she recently started to take ibuprofen with no issues, unable to delete. 03/29/17 Current Outpatient Prescriptions: hyaluronate sodium (HYALURONIC ACID, SODIUM, ORAL) Take by mouth. ibuprofen (MOTRIN) 200 mg tablet Take 200 mg by mouth every 6 hours as needed. TURMERIC, BULK, MISC ascorbic acid, vitamin C, (VITAMIN C) 500 mg tablet Take 500 mg by mouth once daily. Inxfttyotvu-Zazcbuhqb-Mpi C-Mn cap Take by mouth. Vit X-Szdatv-Tlclvy-Grape (TART ESPINOZA) 95-108-62-75-20 mg cap Take 1 capsule by mouth once daily. cholecalciferol (VITAMIN D) 1,000 unit tab tablet Take 1,000 Units by mouth once daily. No current facility-administered medications for this visit. Review of Systems Constitutional: Negative for chills, fever, malaise/fatigue and weight loss. HENT: Negative for congestion, ear pain and sore throat. Eyes: Negative for blurred vision and double vision. Respiratory: Negative for cough, shortness of breath and wheezing. Cardiovascular: Negative for chest pain, orthopnea and leg swelling. Gastrointestinal: Negative for abdominal pain, constipation, diarrhea, heartburn, nausea and vomiting. Genitourinary: Negative for dysuria. Skin: Negative for rash. Neurological: Negative for dizziness and headaches. Psychiatric/Behavioral: Negative for depression. BP 130/72 Pulse 62 Temp (Src) 97.8 (Oral) Ht 5' 1 (1.55m) Wt 133 lb 3.2 oz (60.4kg) BMI 25.18 kg/(m2). Physical Exam Constitutional: She is oriented to person, place, and time and well-developed, well-nourished, and in no distress. No distress. HENT: Head: Normocephalic. Eyes: Conjunctivae are normal. Right eye exhibits no discharge. Left eye exhibits no discharge. Cardiovascular: Normal rate, regular rhythm, normal heart sounds and intact distal pulses. No murmur heard. Pulmonary/Chest: Effort normal and breath sounds normal. No respiratory distress. She has no wheezes. Abdominal: Soft. Bowel sounds are normal. She exhibits no distension. There is no tenderness. Musculoskeletal: Edema: no LE edema. Neurological: She is alert and oriented to person, place, and time. Skin: Skin is warm and dry. Psychiatric: Mood and affect normal. b/ ears - Tm clear Lt lower back - no spinal/ paraspinal tenderness SLR (-) ASSESSMENT/PLAN: 1. Left-sided low back pain with left-sided sciatica, unspecified chronicity - ICD9: 724.3, ICD10: M54.42 (primary diagnosis) Sciatica - Warm moist heat for 20 min three times a day - NSAIDS- see orders - Already has an appointment to see ortho. - Patient given instructions use of medications as ordered, back care exercise program, improved posture, proper lifting techniques, intermittent use of heat and avoiding sleeping on a heating pad - Follow up if symptoms persist or worsen 2. Vitamin D deficiency - ICD9: 268.9, ICD10: E55.9 - VITAMIN D 25 HYDROXY 3. Screening for lipid disorders - ICD9: V77.91, ICD10: Z13.220 - LIPID PANEL BASIC 4. Breast cancer screening - ICD9: V76.10, ICD10: Z12.31 - Set up for mammogram, yearly mammogram recommended - Encouraged monthly BSE - YSABEL SCREENING 5. Screening for diabetes mellitus - ICD9: V77.1, ICD10: Z13.1 - BASIC METABOLIC PNL 6. Screening for deficiency anemia - ICD9: V78.1, ICD10: Z13.0 - CBC Discussed above plan with patient. Pt agreeable with above plan. Papito Ochoa MD This note was partially generated using YUPIQ voice recognition system, and there may be some incorrect words, spellings, and punctuation that were not noted in checking the note before saving. Referring Provider: SELF [200] Allergies As of Date: 09/28/2017 Noted Allergy Reaction BACTRIM (SULFAMETHOXAZOLE-TRIMETH*01/20/2016 2 - Rash NSAIDS (NON-STEROIDAL ANTI-INFLAM*01/20/2016 2 - Rash 4 - Hives Comments: Advil specific per PT. Patient states she recently started to take ibuprofen with no issues, unable to delete. 03/29/17 Date Reviewed: 09/28/2017 Reviewed by: Thuy Soriano - Fully Assessed Reason for Visit: Follow Up [171] Primary Visit Diagnosis:Left-sided low back pain with left- sided sciatica, unspecified chronicity [M54.42] Other Visit Diagnoses:Vitamin D deficiency [E55.9] Screening for lipid disorders [Z13.220] Breast cancer screening [Z12.31] Screening for diabetes mellitus [Z13.1] Screening for deficiency anemia [Z13.0] Order(s):[] diptheria,pertussis(acel),tetanus injection (ADACEL, TdaP) injectionInject 0.5 mL intramuscularly one time only for 1 dose.Disp: 0.5 mLRfl: 0 CBC [SQCBC] Order #: [id number] FUTURE LIPID PANEL BASIC [SQLIPB] Order #: [id number] FUTURE BASIC METABOLIC PNL [SQBMP] Order #: [id number] FUTURE VITAMIN D 25 HYDROXY [SQVITD] Order #: [id number] FUTURE YSABEL SCREENING [6645713] Order #: [id number] FUTURE Prescriptions as of 09/28/2017 Sig: HYALURONIC ACID (SODIUM) ORAL Take by mouth. IBUPROFEN 200 MG TABLET Take 200 mg by mouth every 6 * TURMERIC (BULK) MISC ASCORBIC ACID (VITAMIN C) 500* Take 500 mg by mouth once marcus* IKNYUSWWBCL-YNJJQCQCQ-LMR C-M* Take by mouth. VIT C 30 MG-S.ESPINOZA 250 MG-C* Take 1 capsule by mouth once * DIPHTH,PERTUS(ACEL)TETANUS(PF* Inject 0.5 mL intramuscularly* CHOLECALCIFEROL (VITAMIN D3) * Take 1,000 Units by mouth onc* Medication notes this encounter CHOLECALCIFEROL (VITAMIN D3) 1,000 UNIT TABLET >> September Rodney 09/28/2017 8:43 AM >> RODNEY SeptemberSep 28, 2017 8:43 AM Not taking KCCAHOT-AEA-CJV N2-B0-TOBEKMTA 250 MG-40 MG-5 MG-125 UNIT TABLET >> September Rodney 09/28/2017 8:42 AM >> RODNEY SeptemberSep 28, 2017 8:42 AM Not taking Problem List As Of Date 09/28/2017 Noted Resolved Dizziness [R42] INVALID FOR* Notes for Staff Discussed this visit Visit Notes: >> September Rodney MonSep 28, 2017 8:43 AM Status: Signed Pt here for follow up on dizziness and joint pain. Pt state no more dizziness and her left hip has been aching in pain since May and radiates down her leg, the pain occurs when she is walking or standing. September Rodney /ALLI Prescriptions ordered this encounter Disp Refills Start End DIPHTH,PERTUS(ACEL)TETANUS(PF)2LF-(2* 0.5 * 0 09/28/2017 09/28/2017 Class: Print RX Route: INTRAMUSCULA Sig: Inject 0.5 mL intramuscularly one time only for 1 dose. Medications Discontinued During This Encounter Fqwefed-Siq-Pmk W1-K6-Mnfxsmig 250-4* 09/28/2017 Class: Historical Med Route: ORAL Sig: Take 1 tablet by mouth once daily. Disc: Discontinued by Patient Follow Up: Discussed this visit Disposition: Return in about 6 months (around 03/30/2018), or if symptoms worsen or fail to improve, for back pain. Follow-up and Disposition History Recorded Encounter Status:Closed by MD OCHOA SIMRANJOT on 10/23/17 PROGRESS Observed: 09/28/2017 Status: COMPLETED Source: [place] 8:59 AM [facility] [place] REPOSITORY O ID: [id number] Author: Papito Ochoa Service: (none) Author Type: Physician Type: Progress Notes Filed: 10/23/2017 11:50 AM Note Text: Subjective: Mile Vazquez is a 77 year old White female, Patient presents with: Follow Up . HPI Lt lower back/ hip/ leg pain X 4 months Been seeing chiropractor , now seeing Ortho 10/05/17. 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 Has been seeing Dr. Hyman for diarrhea - had a colonoscopy, diarrhea thought to be d/t IBS. Doesn't take bentyl. Has been modifying her diet which has helped her control the diarrhea. Weight steady. Dizziness resolved. No CP/SOB Has DEXA done 10+ years ago , was osteopenia but pt doesn't want to take any medications for it. Was taking Vit D/Ca supplement but stopped taking it as she thought that was probably making her leg pain worse. Is willing to restart it again. C'Scopy done 3 yrs ago. 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 cyst - Hip pain - Hyperlipidemia - IBS (irritable bowel syndrome) - Joint pain - Localized superficial swelling of skin - Localized swelling, mass and lump, left upper limb - Localized swelling, mass and lump, right upper limb - Localized swelling, mass and lump, unspecified upper limb - Osteoarthritis - Otalgia - Posterior rhinorrhea - Radiculopathy of lumbar region - Sciatica - Tinnitus - Vitamin D deficiency PAST SURGICAL HISTORY Procedure Laterality Date - APPENDECTOMY HX 1981 - TOTAL ABDOM HYSTERECTOMY 1981 - VAGINAL DELIVERY HX 2 children Social History Substance Use Topics - Smoking status: Never Smoker - Smokeless tobacco: Never Used - Alcohol use Yes Family history reviewed. ALLERGIES Allergen Reactions - Bactrim [Sulfametho* Rash - Nsaids (Non-Steroid* Rash, Hives Advil specific per PT. Patient states she recently started to take ibuprofen with no issues, unable to delete. 03/29/17 Current Outpatient Prescriptions: hyaluronate sodium (HYALURONIC ACID, SODIUM, ORAL) Take by mouth. ibuprofen (MOTRIN) 200 mg tablet Take 200 mg by mouth every 6 hours as needed. TURMERIC, BULK, MISC ascorbic acid, vitamin C, (VITAMIN C) 500 mg tablet Take 500 mg by mouth once daily. Lqxalvbgepv-Wdnubevvc-Zia C-Mn cap Take by mouth. Vit S-Liryko-Njvvxj-Grape (TART ESPINOZA) 86-506-80-75-20 mg cap Take 1 capsule by mouth once daily. cholecalciferol (VITAMIN D) 1,000 unit tab tablet Take 1,000 Units by mouth once daily. No current facility-administered medications for this visit. Review of Systems Constitutional: Negative for chills, fever, malaise/fatigue and weight loss. HENT: Negative for congestion, ear pain and sore throat. Eyes: Negative for blurred vision and double vision. Respiratory: Negative for cough, shortness of breath and wheezing. Cardiovascular: Negative for chest pain, orthopnea and leg swelling. Gastrointestinal: Negative for abdominal pain, constipation, diarrhea, heartburn, nausea and vomiting. Genitourinary: Negative for dysuria. Skin: Negative for rash. Neurological: Negative for dizziness and headaches. Psychiatric/Behavioral: Negative for depression. BP 130/72 Pulse 62 Temp (Src) 97.8 (Oral) Ht 5' 1 (1.55m) Wt 133 lb 3.2 oz (60.4kg) BMI 25.18 kg/(m2). Physical Exam Constitutional: She is oriented to person, place, and time and well-developed, well-nourished, and in no distress. No distress. HENT: Head: Normocephalic. Eyes: Conjunctivae are normal. Right eye exhibits no discharge. Left eye exhibits no discharge. Cardiovascular: Normal rate, regular rhythm, normal heart sounds and intact distal pulses. No murmur heard. Pulmonary/Chest: Effort normal and breath sounds normal. No respiratory distress. She has no wheezes. Abdominal: Soft. Bowel sounds are normal. She exhibits no distension. There is no tenderness. Musculoskeletal: Edema: no LE edema. Neurological: She is alert and oriented to person, place, and time. Skin: Skin is warm and dry. Psychiatric: Mood and affect normal. b/ ears - Tm clear Lt lower back - no spinal/ paraspinal tenderness SLR (-) ASSESSMENT/PLAN: 1. Left-sided low back pain with left-sided sciatica, unspecified chronicity - ICD9: 724.3, ICD10: M54.42 (primary diagnosis) Sciatica - Warm moist heat for 20 min three times a day - NSAIDS- see orders - Already has an appointment to see ortho. - Patient given instructions use of medications as ordered, back care exercise program, improved posture, proper lifting techniques, intermittent use of heat and avoiding sleeping on a heating pad - Follow up if symptoms persist or worsen 2. Vitamin D deficiency - ICD9: 268.9, ICD10: E55.9 - VITAMIN D 25 HYDROXY 3. Screening for lipid disorders - ICD9: V77.91, ICD10: Z13.220 - LIPID PANEL BASIC 4. Breast cancer screening - ICD9: V76.10, ICD10: Z12.31 - Set up for mammogram, yearly mammogram recommended - Encouraged monthly BSE - YSABEL SCREENING 5. Screening for diabetes mellitus - ICD9: V77.1, ICD10: Z13.1 - BASIC METABOLIC PNL 6. Screening for deficiency anemia - ICD9: V78.1, ICD10: Z13.0 - CBC Discussed above plan with patient. Pt agreeable with above plan. Papito Ochoa MD This note was partially generated using YUPI[employer] voice recognition system, and there may be some incorrect words, spellings, and punctuation that were not noted in checking the note before saving. ALLERGIES ALLERGIES DATE TYPE / CODE NAME / CODE REACTION SEVERITY SOURCE 01/25/2018 Drug Sulfa Unknown Unknown [facility] All[facility]/4160 (Sulfonamide [facility] 34105(SNOMED Antibiotics)/F Repository CT) [id number](RXNO RM) 01/20/2016 DRUG/[id number] SULFAMETHOXAZO RASH [facility] 03(SNOMED LE-TRIMETHOPRI Other [place] CT) M Repository 01/20/2016 Drug NSAIDS RASH [facility] Class/193128 (NON-STEROIDAL Other [place] 003(SNOMED ANTI-INFLAMMAT Repository CT) ORY DRUG) ENCOUNTERS ENCOUNTERS ADMIT/DISCHARGE ACCOUNT ADMITTING ENCOUNTER LOCATION SOURCE NUMBER CLASS 05/18/2018 [id number] [facility] ing:MRI Repository 05/10/2018 [id number] [facility] ing:LAB Repository 04/03/2018 [id number] Ambulatory [facility] Other [place] Repository 04/03/2018/04/03/20 [id number] Ambulatory [address] Repository 01/25/2018/01/26/20 [id number] Ambulatory BMS[facility] [place] [facility] Hospital Repository 11/02/2017/11/03/[id number] ing:PT Repository 10/05/2017 [id number] [facility] ing:HPRAD Repository 10/05/2017/10/06/19 [id number] Ambulatory BMSBuilding:[facility] [place] [address] [facility] Repository PAYERS PAYERS ENCOUNTER GUARANTOR PAYER SUBSCRIBER SOURCE 05/18/2018 MILE PALOMO [facility] MILE PALOMO [place] [id number] [place] Insurance:MEDICARE CREBSDOB: [place] PART A [facility] [id number] Hospital 19126Gqg: (419) Number: Repository [phone] () [id number] Date:2018-05-10 05/18/2018 Secondary MILE DEWEY [place] Insurance:HEALTH PLAN CREBSDOB: [facility] [id number] Number: Repository [id number] Date: [place] PURVIS 13[address]AC: 05/18/2018 Tertiary NOT GIVENUNK [place] Insurance:SELF PAY [facility] Number: Effective Repository Date:2018-05-10 05/10/2018 [facility] MILE DEWEY [place] [id number] [place] Insurance:MEDICARE CREBSDOB: [place] PART A [facility] [id number] Hospital 49695Nis: (419) Number: Repository [phone] () [id number] Date:2018-05-10 05/10/2018 Secondary MILE DEWEY [place] Insurance:HEALTH PLAN CREBSDOB: [facility] [id number] [facility] Number: Repository [id number] Date: [place], [place] [address]HG: 05/10/2018 Tertiary NOT GIVENUNK [place] Insurance:SELF PAY [facility] Number: Effective Repository Date:2018-05-10 01/25/2018 [facility] MILE DEWEY [place] [id number] [place] Insurance:MEDICARE CREBSDOB: [place] PART A [facility] [id number] Hospital 37090Vct: (419) Number: Repository [phone] () [id number] Date:2018-01-17 01/25/2018 Secondary MILE DEWEY [place] Insurance:HEALTH PLAN CREBSDOB: [facility] [id number] Number: Repository [id number] Date: [place], [place] [address]RU: 01/25/2018 Tertiary NOT GIVENUNK [place] Insurance:SELF PAY [facility] Number: Effective Repository Date:2018-01-17 11/02/2017 [facility] MILE DEWEY [place] [id number] [place] Insurance:MEDICARE CREBSDOB: [place] PART A [facility] [id number] Hospital 97[address]Kkr: (419) Number: Repository [phone] () [id number] Date:2006-02-03 11/02/2017 Secondary MILE DEWEY [place] Insurance:HEALTH PLAN CREBSDOB: [facility] [id number] [facility] Number: Repository [id number] Date: [place], [place] [address]YX: 11/02/2017 Tertiary NOT GIVENUNK [place] Insurance:SELF PAY [facility] Number: Effective Repository Date:2017-10-05 10/05/2017 [facility] MILE DEWEY [place] [id number] [place] Insurance:MEDICARE CREBSDOB: [place] PART A [facility] [id number] Hospital 14651Kez: (419) Number: Repository [phone] () [id number] Date:2017-10-05 10/05/2017 Secondary MILE DEWEY [place] Insurance:HEALTH PLAN CREBSDOB: [facility] [id number] [facility] Hospital Number: Repository [id number] Date: [place], [place] [address]PZ: 10/05/2017 Tertiary NOT GIVENUNK [place] Insurance:SELF PAY [facility] Number: Effective Repository Date:2017-10-05 10/05/2017 [facility] DEWEY [place] [id number] [place] Insurance:MEDICARE CREBSDOB: [place] PART A [facility] [id number] Hospital 0000[address]Qed: (419) Number: Repository [phone] () [id number] Date:2017-09-19 10/05/2017 Secondary MILE DEWEY [place] Insurance:HEALTH PLAN CREBSDOB: [facility] [id number] [facility] Number: Repository [id number] Date: [place], [place] [address]EZ: 10/05/2017 Tertiary NOT GIVENUNK [place] Insurance:SELF PAY [facility] Number: Effective Repository Date:2017-09-19
== END ==
PROVIDERS: Family Provider Student in an Organized Health Care Education/Training Program; PCP Student in an Organized Health Care Education/Training Program; Referring Provider Psychiatry & Neurology Neurology; Visit Provider Psychiatry & Neurology Neurology
DX: R29.898 Other symptoms and signs involving the musculoskeletal system (principal); R20.0 Anesthesia of skin
CPT/HCPCS: 72148

== ENCOUNTER 2020-08-13 10:49 | Outpatient (RCR) | payer MEDICARE, OTHER, SELFPAY ==
[2017-10-05 10:16] VITALS: BMI 25.1
[2020-08-13] MEDS: COVID-19 VACC, MRNA(PFIZER)/PF 30 MCG/0.3 ML SYRINGE IM (09:29)
[2020-09-03] MEDS: COVID-19 VACC, MRNA(PFIZER)/PF 30 MCG/0.3 ML SYRINGE IM (09:24)
== END 2020-11-10 23:59 ==
LOC: IMMUN 10:49
PROVIDERS: Referring Provider Family Medicine; Visit Provider Family Medicine
DX: Z23 Encounter for immunization (principal)
CPT/HCPCS: 0001A; 0002A; 91300